=== PATIENT | male | born 1940 | race African-American/Black ===

== ENCOUNTER 2016-05-31 09:43 | Outpatient (CLI) | payer MEDICARE, MEDICAID ==
[2016-05-31 10:28] LABS: Carbon Dioxide 29 mmol/L (23-31); Chloride 106 mmol/L (98-107)
[2016-05-31 10:29] LABS: Anion Gap 13 mmol/L (10-20); BUN (Urea Nitrogen) 24 mg/dL (8.4-25.7); Calc. Creatinine Clearance 0 mL/min (70-130); Calcium 9.1 mg/dL (7.8-10.44); Estimated GFR-MDRD 24; Magnesium 2.3 mg/dL (1.6-2.6)
[2016-05-31 12:09] LABS: Hematocrit 39.4 % (42.0-52.0)
[2016-05-31 21:48] LABS: Iron 41 ug/dL (65-175)
== END 2016-05-31 09:44 | disposition home or self-care (01) ==
LOC: BURLAB 09:43
PROVIDERS: ATTEND Internal Medicine Nephrology
DX: I12.9 Hypertensive chronic kidney disease with stage 1 through stage 4 chronic kidney disease, or unspecified chronic kidney disease (principal); N18.4 Chronic kidney disease, stage 4 (severe); R30.0 Dysuria
CPT/HCPCS: 36415; 80048; 82040; 82306; 82570; 82728; 83540; 83550; 83735; 83970; 84156; 85014; 85018

== ENCOUNTER 2016-07-19 11:03 | Outpatient (CLI) | payer MEDICARE, MEDICAID ==
[2016-07-19 11:37] LABS: Hematocrit 39.1 % (42.0-52.0)
[2016-07-19 12:09] LABS: Anion Gap 13 mmol/L (10-20); BUN (Urea Nitrogen) 30 mg/dL (8.4-25.7); Calc. Creatinine Clearance 0 mL/min (70-130); Calcium 9.1 mg/dL (7.8-10.44); Carbon Dioxide 28 mmol/L (23-31); Chloride 104 mmol/L (98-107); Estimated GFR-MDRD 20
== END 2016-07-19 11:04 | disposition home or self-care (01) ==
LOC: BURLAB 11:03
PROVIDERS: ATTEND Internal Medicine Nephrology
DX: N25.81 Secondary hyperparathyroidism of renal origin (principal); I12.9 Hypertensive chronic kidney disease with stage 1 through stage 4 chronic kidney disease, or unspecified chronic kidney disease; N18.4 Chronic kidney disease, stage 4 (severe); I15.0 Renovascular hypertension; E11.00 Type 2 diabetes mellitus with hyperosmolarity without nonketotic hyperglycemic-hyperosmolar coma (NKHHC)
CPT/HCPCS: 36415; 80048; 83970; 85014; 85018

== ENCOUNTER 2019-02-16 09:56 | Emergency (ER) | payer MEDICARE, MEDICAID ==
[2019-02-16] MEDS ORDERED: Acetaminophen/Codeine 30-300mg Tablet ONE (10:36)
--- NOTE | 2019-02-16 17:06 | RAD ---
LEFT HUMERUS TWO VIEWS: 02/16/19 No fracture was seen. The humerus appears intact. There is no sign of dislocation at the shoulder. T he proximal forearm appeared intact. IMPRESSION: No acute finding. POS: HOME
== END 2019-02-16 10:40 | disposition home or self-care (01) ==
LOC: BURERS 09:56
DX: S40.022A Contusion of left upper arm, initial encounter (principal); E11.9 Type 2 diabetes mellitus without complications; J44.9 Chronic obstructive pulmonary disease, unspecified; E78.5 Hyperlipidemia, unspecified; I13.0 Hypertensive heart and chronic kidney disease with heart failure and stage 1 through stage 4 chronic kidney disease, or unspecified chronic kidney disease; N18.4 Chronic kidney disease, stage 4 (severe); I50.9 Heart failure, unspecified; I48.91 Unspecified atrial fibrillation; I21.4 Non-ST elevation (NSTEMI) myocardial infarction; F32.9 Major depressive disorder, single episode, unspecified; F17.210 Nicotine dependence, cigarettes, uncomplicated; Z79.01 Long term (current) use of anticoagulants; Z79.899 Other long term (current) drug therapy; Z79.82 Long term (current) use of aspirin; Z79.84 Long term (current) use of oral hypoglycemic drugs; W01.0XXA Fall on same level from slipping, tripping and stumbling without subsequent striking against object, initial encounter